=== PATIENT | female | born 1970 | race Caucasian/White ===

== ENCOUNTER → 2018-04-27 19:30 | Outpatient (CLI) | payer MEDICARE, MEDICAID, SELFPAY ==
--- NOTE | 2018-04-27 19:35 | DI.MRI.S_ITS ---
PROCEDURE: MR CERVICAL SPINE WO CON INDICATIONS: Spinal Stenosis of cervical region TECHNIQUE: Noncontrast sagittal T1 spin echo and T2 fast spin echo, sagittal STIR, foraminal oblique sagittal T2 fast spin echo, and axial gradient echo or T2 fast spin echo through the cervical spine. COMPARISON: [facility], MR, C-SPINE WITHOUT CONTRAST, 04/17/2017, 13:54. FINDINGS: Image quality: Excellent. Alignment and Curvature: Grade 1 anterolisthesis of C4 on C5 and grade 1 retrolisthesis of C6 on C7, unchanged there is straightening of the normal cervical lordosis. Endplate spurring and sclerosis primarily involving the mid to lower cervical spine. Bone Marrow: Marrow demonstrates normal overall signal. Spinal Cord: Visualized spinal cord has normal size and signal. Incidentally noted low-lying cerebellar tonsils. This is probably unchanged. Paraspinous Soft Tissues: No paravertebral masses. Prevertebral soft tissues are normal in thickness. C2-C3: Bilateral facet disease although no definite canal or foraminal stenosis. C3-C4: Bilateral uncovertebral arthropathy and posterior intervening disc osteophyte complex, and bilateral facet arthropathy. No definite canal stenosis. No right foraminal narrowing. There is mild left foraminal narrowing, which is probably unchanged. C4-C5: Bilateral uncovertebral arthropathy and posterior intervening disc osteophyte complex, and asymmetric facet arthropathy, right greater than left. No definite canal stenosis. Severe bilateral, right greater than left, foraminal stenosis. This appears unchanged on the right and progressed on the left since 04/17/17 C5-C6: Bilateral uncovertebral arthropathy and posterior intervening disc osteophyte complex, and bilateral facet disease. Mild canal narrowing with effacement of the anterior thecal sac although this appears grossly unchanged. Severe left and moderate right foraminal stenoses. This appears progressed on the left since the prior study. C6-C7: Bilateral uncovertebral arthropathy and posterior intervening disc osteophyte complex, and bilateral facet arthropathy. There is mild/moderate canal narrowing which appears unchanged. Moderate left and severe right foraminal stenoses which is probably unchanged. C7-T1: Bilateral uncovertebral arthropathy and posterior intervening disc osteophyte complex, and mild bilateral facet disease. Mild to moderate canal narrowing which appears unchanged. Moderate bilateral foraminal stenoses with no interval change. IMPRESSION: Interval progression in left C4-C5 and left C5-C6 foraminal narrowing since the prior study. The remainder the examination appears grossly unchanged as detailed above by spinal level. Incidentally noted low-lying cerebellar tonsils. Dictated by: Souleymane Acuña M.D. on 04/28/2018 at 9:32 Approved by: Souleymane Acuña M.D. on 04/28/2018 at 9:48
== END ==
PROVIDERS: Visit Provider Orthopaedic Surgery
DX: M48.02 Spinal stenosis, cervical region (principal); M48.03 Spinal stenosis, cervicothoracic region; M47.812 Spondylosis without myelopathy or radiculopathy, cervical region; M47.813 Spondylosis without myelopathy or radiculopathy, cervicothoracic region
CPT/HCPCS: 72141